=== PATIENT | female | born 1935 | race Caucasian/White ===

== ENCOUNTER → 2016-11-28 | Outpatient (CLI) | payer MEDICARE, BC, OTHER ==
[~2016-11-28] MED LIST: ASCO1TAB8; ASPI-664; CALC1TAB7; CENTSILV; METO-103; OLME20TA20; OMEG500C; RED600CA7; UBID200C3; VITA1TAB86
--- NOTE | 2016-11-28 17:21 | RADRPT ---
PROCEDURE: XR Knees. CLINICAL INDICATION: Bilateral knee pain. TECHNIQUE: Total of six views. Frontal, oblique, and lateral views of both knees. COMPARISON: 06/22/2015. FINDINGS: There are bilateral total knee arthroplasties. These appear satisfactory with no fracture, dislocat ion, or loosening. The soft tissues are normal. There is no lytic lesion. IMPRESSION: 1. Satisfactory postoperative appearance of both knees. RPTAT: QQ .Tim Swartz MD, MD Date Time Electronically viewed and signed by .Tim Swartz MD, on 11/28/2016 17:21 .R/
== END | disposition home or self-care (01) ==
LOC: HKI 14:02
PROVIDERS: ATTEND Orthopaedic Surgery
DX: Z47.89 Encounter for other orthopedic aftercare (principal); Z96.653 Presence of artificial knee joint, bilateral
CPT/HCPCS: 73562; G0463